=== PATIENT | male | born 1965 | race Caucasian/White ===

== ENCOUNTER → 2020-12-12 07:01 | Outpatient (CLI) | payer BC, OTHER, SELFPAY ==
--- NOTE | ~2020-12-12 | XR_ITS ---
EXAMINATION: XR bone survey comp/metastic EXAM DATE: 12/12/2020 08:30 INDICATION: Plasma cell disorder. TECHNIQUE: Frontal and lateral projections of following regions obtained; right humerus, left humeru s, right forearm, left forearm, right femur, left femur, right tibia, left tibia, lumbar spine, thora cic spine, cervical spine. Lateral projection skull. Frontal chest x-ray. There are no prior studie s for comparison. There are no prior studies for comparison. FINDINGS: Region of vague sclerosis in the distal aspect left tibial diaphysis, benign finding such as healing nonossifying fibroma. This measures about 2 x 4 cm. No lucent regions or evidence of corti humberto destruction. There are no acute fractures identified. IMPRESSION: Left tibial sclerotic region likely benign finding. Reviewed, dictated and finalized at location A.
== END ==
PROVIDERS: PCP Nurse Practitioner Family; Visit Provider Internal Medicine Hematology & Oncology
DX: D72.9 Disorder of white blood cells, unspecified (principal); M89.9 Disorder of bone, unspecified
CPT/HCPCS: 77075

== ENCOUNTER 2025-02-14 14:09 | Outpatient (CLI) | payer BC, OTHER, SELFPAY ==
--- NOTE | ~2025-02-14 | XR_ITS ---
EXAMINATION: XR scapula LT, 02/14/2025 14:14 DIRECTOR OF SAFETY AND SECURITY HISTORY: Fracture of unspecified part of scapula, left shoulder, subs COMPARISON: No comparisons available. Findings: Healing fracture of the Body of the scapula is noted with callus formation. No significant degenerative changes. Soft tissues unremarkable. Impression: Healing fracture Reviewed, dictated and finalized at location P. CTOR OF SAFETY AND SECURITY Impression: Healing fracture
== END 2025-02-14 14:10 | disposition home or self-care (01) ==
PROVIDERS: PCP Physician Assistant; Visit Provider Physician Assistant
DX: S42.112D Displaced fracture of body of scapula, left shoulder, subsequent encounter for fracture with routine healing (principal); X58.XXXD Exposure to other specified factors, subsequent encounter; I60.9 Nontraumatic subarachnoid hemorrhage, unspecified
CPT/HCPCS: 73010

== ENCOUNTER 2025-02-18 12:04 | Outpatient (CLI) | payer BC, OTHER, SELFPAY ==
--- NOTE | ~2025-02-18 | CT_ITS ---
EXAMINATION: CT brain wo con DATE: 02/18/2025 12:24 INDICATION: 59-year-old male with's history of nontraumatic subarachnoid hemorrhage. Further details of this diagnosis are not available TECHNIQUE: Computed tomography (CT) of the head was performed without intravenous contrast. The mA was adjusted according to patient size. Iterative reconstruction technique was employed. The dose-length product was 599.57 mGy-cm. COMPARISON: None FINDINGS: No acute intracranial bleed is noted in the noncontrast study. No extra-axial collections are seen. No evidence of acute or subacute subarachnoid bleed is seen. There is no effacement of sulci. No evidence of ventriculomegaly or midline shift is noted. This No acute lesions on the cranial bones are seen. Mastoids and paranasal sinuses are clear of acute processes. IMPRESSION: 1. No acute intracranial lesions noted in this noncontrast study. No extra-axial collections are seen. No CT evidence of acute or subacute subarachnoid bleed is seen. No prior imaging studies of the brain are available for comparison. Reviewed, dictated and finalized at location T. CERY CLERK IMPRESSION: 1. No acute intracranial lesions noted in this noncontrast study. No extra-axia l collections are seen. No CT evidence of acute or subacute subarachnoid bleed is seen. No prior imaging studies of the brain are available for comparison.
== END 2025-02-18 12:05 | disposition home or self-care (01) ==
PROVIDERS: PCP Physician Assistant; Visit Provider Physician Assistant
DX: I60.9 Nontraumatic subarachnoid hemorrhage, unspecified (principal); S42.102D Fracture of unspecified part of scapula, left shoulder, subsequent encounter for fracture with routine healing; X58.XXXD Exposure to other specified factors, subsequent encounter
CPT/HCPCS: 70450